=== PATIENT | male | born 1965 | race Caucasian/White ===

== ENCOUNTER 2022-11-27 07:15 | Emergency (ER) | payer OTHER ==
[2022-11-27 07:35] VITALS: BMI 25.0
[2022-11-27 12:10] VITALS: BP 149/85; PULSE 73; RESP 20; TEMP 97.7
== END 2022-11-27 13:05 | disposition home or self-care (01) ==
LOC: JER 07:15
DX: S42.001A Fracture of unspecified part of right clavicle, initial encounter for closed fracture (principal); S60.512A Abrasion of left hand, initial encounter; S80.812A Abrasion, left lower leg, initial encounter; V00.831A Fall from motorized mobility scooter, initial encounter; Y93.55 Activity, bike riding; Y92.410 Unspecified street and highway as the place of occurrence of the external cause
CPT/HCPCS: 70490-TC; 73000-TC-RT-FY; 73030-TC-RT-FY; 73110-TC-LT-FY; 73130-TC-LT-FY; 73564-TC-LT-FY; 99284-25